=== PATIENT | female | born 1965 | race Caucasian/White ===

== ENCOUNTER 2019-06-08 22:24 | Emergency (ER) | payer OTHER ==
[~2019-06-08] VITALS: Ht 157.5 cm; Wt 78.0 kg
[2019-06-08 22:29] VITALS: Ht 157.5 cm; Wt 78.0 kg
[2019-06-08 23:07] VITALS: BP 170/96
== END 2019-06-08 23:07 | disposition home or self-care (01) ==
LOC: ED 22:24
DX: Z76.0 Encounter for issue of repeat prescription (principal); I10 Essential (primary) hypertension; Z86.73 Personal history of transient ischemic attack (TIA), and cerebral infarction without residual deficits

== ENCOUNTER 2019-06-26 02:41 | Emergency (ER) | payer OTHER ==
[~2019-06-26] VITALS: Ht 157.5 cm; Wt 77.3 kg
[2019-06-26 03:35] LABS: BASOPHIL % 0.7 % (0-2); PLATELET COUNT 268 x10^3mcL (130-400)
[2019-06-26 03:48] LABS: CALCIUM 8.9 mg/dL (8.5-10.1); CARBON DIOXIDE 26.1 mmol/L (21-32); CHLORIDE SERUM 104 mmol/L (98-107); CREATININE SERUM 0.7 mg/dL (0.6-1.0); GFR1 > 60 mL/min; GLUCOSE SERUM 155 mg/dL (74-106); POTASSIUM SERUM 3.4 mmol/L (3.5-5.1); SODIUM SERUM 140 mmol/L (136-145)
[2019-06-26 03:53] LABS: ALBUMIN 3.5 g/dL (3.4-5.0); ALKALINE PHOSPHATASE 151 U/L (46-116); ALT/SGPT 45 U/L (14-59); AST/SGOT 25 U/L (15-37); BILIRUBIN TOTAL 0.65 mg/dL (0.20-1.00); TOTAL PROTEIN, SERUM 7.5 g/dL (6.4-8.2)
[2019-06-26 04:33] VITALS: BP 135/89
[2019-06-27] MEDS ORDERED: TOPCARE OMEPRAZ20 MG PO (03:32)
[2019-06-27] MEDS ORDERED: IBU800 M2 PO (03:33)
[2019-06-27] MEDS ORDERED: FLAGYL250 MG PO (03:33)
[2019-06-27] MEDS ORDERED: ULTRAM50 MG (03:40)
[2019-06-27] MEDS ORDERED: XANAX0.25 MG (03:40)
[2019-06-27] MEDS ORDERED: CIPRO250 MG/5 M (03:40)
[2019-06-27] MEDS ORDERED: XANAX0.25 MG PO (03:41)
== END 2019-06-26 04:33 | disposition home or self-care (01) ==
LOC: ED 02:41
PROVIDERS: Emergency Medicine
DX: K57.32 Diverticulitis of large intestine without perforation or abscess without bleeding (principal); Z86.73 Personal history of transient ischemic attack (TIA), and cerebral infarction without residual deficits
CPT/HCPCS: 36415

== ENCOUNTER 2019-06-27 00:44 | Inpatient (IN) | payer OTHER ==
[~2019-06-27] VITALS: Ht 157.5 cm; Wt 78.7 kg
[2019-06-27 00:48] VITALS: Ht 157.5 cm; Wt 78.7 kg
[2019-06-27 02:01] LABS: UA SPECIFIC GRAVITY 1.015 (1.005-1.035); microscopic required? YES; urine erythrocyte 1+ (NEGATIVE)
[2019-06-27 02:02] LABS: BASOPHIL % 0.6 % (0-2); PLATELET COUNT 272 x10^3mcL (130-400); RED CELL DISTRIBUTION WIDTH 12.8 % (11.5-14.5)
[2019-06-27 02:18] LABS: ALBUMIN 3.5 g/dL (3.4-5.0); ALKALINE PHOSPHATASE 170 U/L (46-116); ALT/SGPT 41 U/L (14-59); AST/SGOT 21 U/L (15-37); BILIRUBIN TOTAL 0.4 mg/dL (0.20-1.00); CALCIUM 9.4 mg/dL (8.5-10.1); CHLORIDE SERUM 106 mmol/L (98-107); CREATININE SERUM 0.8 mg/dL (0.6-1.0); GFR1 > 60 mL/min; GLUCOSE SERUM 109 mg/dL (74-106); LIPASE 303 IU/L (73-393); POTASSIUM SERUM 3.6 mmol/L (3.5-5.1); SODIUM SERUM 143 mmol/L (136-145); TOTAL PROTEIN, SERUM 7.7 g/dL (6.4-8.2)
[2019-06-27] MEDS ORDERED: TOPCARE OMEPRAZ20 MG PO (03:32)
[2019-06-27] MEDS ORDERED: IBU800 M2 PO (03:33)
[2019-06-27] MEDS ORDERED: FLAGYL250 MG PO (03:33)
[2019-06-27] MEDS ORDERED: XANAX0.25 MG (03:40)
[2019-06-27] MEDS ORDERED: ULTRAM50 MG (03:40)
[2019-06-27] MEDS ORDERED: CIPRO250 MG/5 M (03:40)
[2019-06-27] MEDS ORDERED: XANAX0.25 MG PO (03:41)
[2019-06-27 04:24] VITALS: BP 144/85
[2019-06-27 08:07] VITALS: BP 116/57
[2019-06-27 11:49] VITALS: BP 115/75
[2019-06-27 17:26] VITALS: BP 125/75
[2019-06-27 19:58] VITALS: BP 136/78
[2019-06-28 05:38] VITALS: BP 109/68
[2019-06-28 06:31] LABS: BASOPHIL % 0.8 % (0-2); PLATELET COUNT 279 x10^3mcL (130-400); RED CELL DISTRIBUTION WIDTH 12.7 % (11.5-14.5)
[2019-06-28 06:44] LABS: CALCIUM 8.9 mg/dL (8.5-10.1); CARBON DIOXIDE 26.4 mmol/L (21-32); CHLORIDE SERUM 104 mmol/L (98-107); CREATININE SERUM 0.6 mg/dL (0.6-1.0); GFR1 > 60 mL/min; GLUCOSE SERUM 110 mg/dL (74-106); POTASSIUM SERUM 3.2 mmol/L (3.5-5.1); SODIUM SERUM 140 mmol/L (136-145)
[2019-06-28 08:17] VITALS: BP 140/88
[2019-06-28 11:35] VITALS: BP 147/70
[2019-06-28] MEDS ORDERED: CIPRO250 MG/5 M PO (11:44)
[2019-06-28] MEDS ORDERED: FLAGYL250 MG PO (11:44)
[2019-06-28 13:22] VITALS: BP 147/70
[2019-06-28] MEDS ORDERED: ZOF4 PO (14:37)
[2019-06-28] MEDS ORDERED: DRAMAMINE LESS25 MG PO (14:37)
== END 2019-06-28 15:39 | disposition home or self-care (01) | DRG 244 ==
LOC: ED 00:44 → MU 03:14
PROVIDERS: Emergency Medicine; Hospitalist; ADMIT Internal Medicine
DX: K57.32 Diverticulitis of large intestine without perforation or abscess without bleeding (principal); E66.9 Obesity, unspecified; N39.0 Urinary tract infection, site not specified; Z86.73 Personal history of transient ischemic attack (TIA), and cerebral infarction without residual deficits; Z91.013 Allergy to seafood; Z68.31 Body mass index [BMI] 31.0-31.9, adult
CPT/HCPCS: G0378; J1644; J1956; J2270; J2405; J3490; J7030

== ENCOUNTER 2019-06-29 23:01 | Emergency (ER) | payer OTHER ==
[~2019-06-29] VITALS: Ht 157.5 cm; Wt 76.7 kg
[~2019-06-29 23:01] MED LIST: CIPRO250 MG/5 M; CIPRO250 MG/5 M PO; DRAMAMINE LESS25 MG PO; FLAGYL250 MG PO; IBU800 M2 PO; TOPCARE OMEPRAZ20 MG PO; ULTRAM50 MG; XANAX0.25 MG; XANAX0.25 MG PO; ZOF4 PO
[2019-06-29 23:05] VITALS: Ht 157.5 cm; Wt 76.7 kg
[2019-06-30 01:11] VITALS: BP 133/77
== END 2019-06-30 01:11 | disposition home or self-care (01) ==
LOC: ED 23:01
DX: K59.00 Constipation, unspecified (principal); Z91.013 Allergy to seafood